=== PATIENT | female | born 1975 | race Caucasian/White ===

== ENCOUNTER 2016-09-24 00:30 | Emergency (ER) | payer BC ==
[~2016-09-24] VITALS: Ht 162.6 cm; Wt 101.1 kg
[2016-09-24 00:30] VITALS: Ht 162.6 cm; Wt 101.1 kg
[~2016-09-24 00:30] MED LIST: BUPR150T6 PO; CYCL-375 PO; HYDR-4010 PO; IBUP-1547 PO; LURA20TA PO; LURA80TA PO
--- OUTSIDE RECORDS SUMMARY | 2016-09-24 00:34 | XMS REPORT ---
Author Author Yessenia Spear [facility] eClinicalWorks Address Unknown Phone Unavailable Care Team Providers Care Model Maker Plaster Name Role Phone Yessenia Spear Unavailable Allergies No Known Allergies Problems Problem Type Condition ICD-9 Code Onset Dates Condition Status Problem Migraine headaches 346.90 Active Medications No Known Medications Vital Signs Date/Time: Jun 10, 2014 Height 64.5 inches Weight 214.8 lbs Temperature 98.3 F Blood Pressure Diastolic 88 mm Hg Blood Pressure Systolic 124 mm Hg Cardiac Monitoring Heart Rate 64 Beats per Minute BMI 36.30 Index Respiratory Rate 16 per Minute Results No Known Results Summary Purpose eClinicalWorks Submission
--- OUTSIDE RECORDS SUMMARY | 2016-09-24 00:34 | XMS REPORT | Summary of Care ---
Author Author Bree Lee, Tristan Organization Unknown Address Unknown Phone Unavailable Care Team Providers Care Placement Coordinator Name Role Phone Tristan Giron M.D. 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 * Refills: 0 * Started 27-May-2015 ActiveGabapentin 100 MG Oral Capsule TAKE 1 CAPSULE 3 TIMES DAILY. * Refills: 0 * Started 27-May-2015 ActiveHydrocodone-Acetaminophen 7.5-325 MG Oral Tablet TAKE 1 TABLET BY MOUTH EVERY 6 HOURS NEEDED .*MAX 4 PER DAY*MAY FILL ON OR AFTER 11/19/15* * Quantity: 120 Refills: 0 Tristan Giron M.D.* Started 27-May-2015 ActiveBusPIRone HCl - 10 MG Oral Tablet TAKE 1 TABLET DAILY DIRECTED. * Refills: 0 * Started 27-May-2015 ActiveMeloxicam 15 MG Oral Tablet TAKE ONE TABLET BY MOUTH EVERY DAY WITH FOOD * Quantity: 30 Refills: 2 Tristan Giron M.D.* Started 27-May-2015 ActiveCyclobenzaprine HCl - 10 MG Oral Tablet TAKE 1 TABLET 3 TIMES DAILY NEEDED. * Quantity: 90 Refills: 2 Tristan Giron M.D.* Started 27-May-2015 ActiveEvzio 0.4 MG/0.4ML Injection Solution Auto-injector INJECT 0.4MG SC/IM Q 2-3MIN NEEDED PER OVERDOSE * Quantity: 1 Refills: 0 Tristan Giron M.D.* Started 27-May-2015 Active0.4 ML Package (2 Packages) Allergies and Adverse Reactions Name Dates Details Bactrim Status: Active Latex Gloves MISC Status: Active Levaquin Status: Active Past Medical History Name Dates Details History of asthma (V12.69, Z87.09) Status: Resolved History of depression (V11.8, Z86.59) Status: Resolved History of migraine (V12.49, Z86.69) Status: Resolved History of pancreatitis (V12.79, Z87.19) Status: Resolved History of rheumatoid arthritis (V13.4, Z87.39) Status: Resolved History of seasonal allergies (V15.09, Z88.9) Status: Resolved History of Stomach problems (536.9, K31.9) Status: Resolved History of Ulcer (707.9, L98.499) Status: Resolved Procedures Procedure Dates Details History of Gallbladder Surgery History of Hysterectomy History of Tubal Ligation [facility] Cervical Epidural 15481 Ordered: Immunization Name Dates Details Immunizations not documented Family History Unknown Family Member* Name Dates Details Family history of hypercholesterolemia (V18.19, Z83.49) Comments: Family History Status: Active Family history of myocardial infarction (V17.3, Z82.49) Comments: Family History Status: Active Family history of cerebrovascular accident (CVA) (V17.1, Z82.3) Comments: Family History Status: Active Family history of skin cancer (V16.8, Z80.8) Comments: Family History Status: Active Family history of Alcoholism and drug addiction in family (V61.41, Z63.72) Comments: Family History Status: Active Mother* Name Dates Details Family history of alcoholism (V17.0, Z81.1) Status: Active Family history of hypertension (V17.49, Z82.49) Status: Active Brother* Name Dates Details Family history of depression (V17.0, Z81.8) Status: Active Family history of seizures (V19.8, Z84.89) Status: Active Social History Name Dates Details Smoking Status* Never smoker * Never smoker Vital Signs Date Test Result Details 09:44 BP Systolic 120 mm[Hg] Status: BP Diastolic 84 mm[Hg] Status: Heart Rate 70 /min Status: Respiration Rate 20 /min Status: Height 64 in Status: Weight 234 lb Status: O2 SAT 99 % Status: Body Mass Index Calculated 40.17 kg/m2 Status: Body Surface Area Calculated 2.09 m2 Status: Results Date Description Value Details 09:27 MRI CERVICAL SPINE Comments: Exam Date: 10/21/2015 08: 00Dictation Date: 10/21/2015 09:27 XMR SPINE CERVICAL (Better) Plan of Care Planned Observations* Name Dates Details Planned Goals not documented Goal Planned Encounters* Appointment; Provider: Schedule Radiology On 08:45 Instructions * Instructions not documented Encounters Appointment; Tristan Giron Encounter Diagnosis: Problem not documented On 09:45 Appointment; Tristan Giron Encounter Diagnosis: Problem not documented On 23-Aug-2015 14:15 Appointment; Tristan Giron Encounter Diagnosis: Problem not documented On 25-Jun-2015 15:30 Appointment; Tristan Giron Encounter Diagnosis: Problem not documented On 27-May-2015 13:30
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
--- OUTSIDE RECORDS SUMMARY | 2016-09-24 00:34 | XMS REPORT ---
Author Author Yessenia Spear [facility] eClinicalWorks Address Unknown Phone Unavailable Care Team Providers Care Electric Transfer Operator Name Role Phone Yessenia Spear CP Unavailable Allergies No Known Allergies Problems Problem Type Condition Code Onset Dates Condition Status Problem Migraine headaches 346.90 Active Medications No Known Medications Results No Known Results Summary Purpose eClinicalWorks Submission
--- OUTSIDE RECORDS SUMMARY | 2016-09-24 00:34 | XMS REPORT | Summary of Care ---
Author Author Tristan Giron M.D. Organization Unknown Address Unknown Phone Unavailable Care Team Providers Care Dye Line Operator Name Role Phone Tristan Giron M.D. 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 * Quantity: 90 Refills: 2 Tristan Giron M.D.* Started 27-May-2015 ActiveBusPIRone HCl [...] TIMES DAILY NEEDED. * Quantity: 90 Refills: 0 Tristan Giron M.D.* Started 27-May-2015 ActiveEvzio 0.4 MG/0.4ML Injection Solution Auto-injector INJECT 0.4MG SC/IM Q 2-3MIN NEEDED PER OVERDOSE * Quantity: 1 Refills: 0 Tristan Giron M.D.* Started 27-May-2015 Active0.4 ML Package (2 Packages) CloNIDine HCl - 0.1 MG Oral Tablet TAKE 1 TABLET BY MOUTH TWICE DAILY X'S 1 WEEK. * Quantity: 14 Refills: 0 Tristan Giron M.D.* Started 08-Jul-2015 Ended 15-Jul-2015 Active Allergies and Adverse Reactions Name Dates Details [...] History of Hysterectomy History of Tubal Ligation Procedures not documented Immunization Name Dates Details Immunizations not documented [...] smoker Vital Signs Date Test Result Details 25-Jun-2015 15:27 BP Systolic 110 mm[Hg] Status: BP Diastolic 84 mm[Hg] Status: Heart Rate 95 /min Status: Respiration Rate 20 /min Status: Height 64 in Status: Weight 228.25 lb Status: O2 SAT 98 % Status: Body Mass Index Calculated 39.18 kg/m2 Status: Body Surface Area Calculated 2.07 m2 Status: Results Date Description Value Details Results not documented Plan of Care Planned Observations* Name Dates Details Planned Goals not documented Goal Planned Encounters* Appointment; Provider: Tristan Giron On 23-Aug-2015 14:15 Instructions * Instructions not documented Encounters Appointment; Tristan Giron Encounter Diagnosis: Problem not documented On 25-Jun-2015 15:30 Appointment; Tristan Giron Encounter Diagnosis: Problem not documented On 27-May-2015 13:30
--- OUTSIDE RECORDS SUMMARY | 2016-09-24 00:34 | XMS REPORT | Summary of Care ---
Author Author Tristan Giron M.D. Organization Unknown Address Unknown Phone Unavailable Care Team Providers Care Visitor Services Assistant Name Role Phone Tristan Giron M.D. Unavailable [...] Tristan Giron M.D.* Started 08-Jul-2015 Ended 15-Jul-2015 ActiveFentaNYL 12 MCG/HR Transdermal Patch 72 Hour APPLY 1 PATCH EVERY 72 HRS WITH 25MCG PATCH=37MCG. *REMOVE OLD PATCH PRIOR. MUST LAST 30 DAYS.*MAY FILL ON OR AFTER 08/08/15* * Quantity: 10 Refills: 0 Tristan Giron M.D.* Started 08-Jul-2015 Active Allergies and Adverse Reactions Name Dates [...]
--- OUTSIDE RECORDS SUMMARY | 2016-09-24 00:34 | XMS REPORT | Referral Summary ---
Author Author [facility], [facility] Care Organization [facility] Address Unknown Phone Unavailable Care Team Providers Care Consulting Engineer Name Role Phone Jet Moore Primary Care Physician [phone] Encounter VC Date(s): 02/10/16 - 02/10/16 [facility] [address] [place] [address] Discharge Diagnosis: Bipolar disorder Discharge Diagnosis: Obesity Discharge Diagnosis: Chronic neck and back pain Discharge Disposition: 01-Home or Self Care Attending Physician: Kevin Pritchard PA-C Admitting Physician: Kevin Pritchard PA-C Vital Signs Most recent to 1 oldest [Reference Range]: Temperature Tympanic 37.1 degC [36.6-38.1 degC] (02/10/16 1:06 PM) Peripheral Pulse 106 bpm Rate [60-100 bpm] *HI* (02/10/16 1:06 PM) Blood Pressure 122/84 mmHg [90-140/60-90 mmHg] (02/10/16 1:06 PM) SpO2 98 % (02/10/16 1:06 PM) Problem List Condition Effective Dates Status Health Status Informant Marijuana Active use(Confirmed) Chronic neck Active pain(Confirmed) Hx of noncompliance Active with medical treatment, presenting hazards to health(Confirmed) SONIA (generalized Active anxiety disorder)(Confirmed) Chronic bipolar Active disorder(Confirmed) Obesity(Confirmed) Active patient Allergies, Adverse Reactions, Alerts Substance Reaction Severity Status Bactrim Active Latex Active Levaquin Active Medications cyclobenzaprine 10 mg oral tablet 10 mg 1 tabs, Oral, TID, as needed for spasm, # 60 tabs, 0 Refill(s), Pharmacy: [facility] #[id number], 1 tabs Oral TID,PRN:as needed for spasm Start Date: 02/03/16 Status: Ordered LaMICtal 25 mg oral tablet 25 mg 1 tabs, Oral, Daily, 0 Refill(s) Start Date: 02/03/16 Status: Ordered Misc Medication Takes something for sleep prescribed by PV., 0 Refill(s) Start Date: 02/03/16 Status: Ordered Results No data available for this section Immunizations No data available for this section Procedures Procedure Date Related Diagnosis Body Site Cholecystectomy Hysterectomy Tubal ligation Social History Social History Type Response Smoking Status Never smoker Assessment and Plan Extracted from: Title: Neck pain Author: Kevin Pritchard PA-C Date: 02/10/16 Assessment/Plan Bipolar disorder Patient reports stable and continued care at [place] Chronic neck and back pain We discussedfollow-up appointment with Dr. Moore in February, I alsodiscussed the Toradol injection in office. Patient was willing tohave Toradol injection;she reports having this previouslyin the ERand it was helpful.Patient was going to cease NSAID use for 12 hours- ibuprofen/Motrin or Aleve;she could use Tylenol 1000 mg every 8 hours and continue using the Flexeril with this injection. Obesity
--- OUTSIDE RECORDS SUMMARY | 2016-09-24 00:34 | XMS REPORT | Referral Summary ---
Author Author [facility], Family Medicine Organization [facility] Address Unknown Phone Unavailable Care Team Providers Care Consumer Lending Manager Name Role Phone Jet Moore Primary Care Physician [phone] Encounter VC Date(s): 02/23/16 - 02/23/16 [facility] [address] [place] [address] Discharge Diagnosis: Hx of noncompliance with medical treatment, presenting hazards to health Discharge Diagnosis: SONIA (generalized anxiety disorder) Discharge Diagnosis: Chronic neck pain Discharge Diagnosis: Chronic bipolar disorder Discharge Disposition: 01-Home or Self Care Attending Physician: Trevon Moore MD Admitting Physician: Trevon Moore MD Vital Signs Most recent to 1 oldest [Reference Range]: Blood Pressure 130/100 mmHg [90-140/60-90 mmHg] (02/23/16 1:36 PM) Problem List Condition Effective Dates Status [...] spasm, # 60 tabs, 0 Refill(s), Pharmacy: [facility] #[id number], 1 tabs Oral TID,PRN:as needed for spasm Start Date: 02/03/16 Status: Ordered cyproheptadine 4 mg oral tablet 8 mg 2 tabs, Oral, Bedtime (once a day), from PV, 0 Refill(s) Start Date: 02/23/16 Status: Ordered LaMICtal 25 mg oral tablet 25 mg 1 tabs, Oral, Daily, 0 Refill(s) Start Date: 02/03/16 Status: Ordered Reeds 7.5 mg-325 mg oral tablet 1 tabs, Oral, q6hr, as needed for pain, 56 tabs must last fourteen days, # 56 tabs, 0 Refill(s) Start Date: 02/23/16 Status: Ordered Physical Therapy Physical Therapy, See Instructions, Eval and treat as indicated for neck and back pain., # 1 Each, 0 Refill(s) Start Date: 02/23/16 Status: Ordered Results No data available for this section Immunizations No data available for this section Procedures Procedure Date Related Diagnosis Body Site Cholecystectomy Hysterectomy Tubal ligation Social History Social History Type Response Smoking Status Never smoker Assessment and Plan Extracted from: Title: Ambulatory Patient Education Author: Trevon Moore MD Date: Procedures Epidural Steroid Injection An epidural steroid injection is given to relieve pain in your neck, back, or legs that is caused by the irritation or swelling of a nerve root. This procedure involves injecting a steroid and numbing medicine (anesthetic) into the epidural space. The epidural space is the space between the outer covering of your spinal cord and the bones that form your backbone (vertebra). LET YOUR HEALTH CARE PROVIDER KNOW ABOUT: Any allergies you have. All medicines you are taking, including vitamins, herbs, eye drops, creams, and pmsc-gqi-mxhyvyn medicines such as aspirin. Previous problems you or members of your family have had with the use of anesthetics. Any blood disorders or blood clotting disorders you have. Previous surgeries you have had. Medical conditions you have. RISKS AND COMPLICATIONS Generally, this is a safe procedure. However, as with any procedure, complications can occur. Possible complications of epidural steroid injection include: Headache. Bleeding. Infection. Allergic reaction to the medicines. Damage to your nerves. The response to this procedure depends on the underlying cause of the pain and its duration. People who have long-term (chronic) pain are less likely to benefit from epidural steroids than are those people whose pain comes on strong and suddenly. BEFORE THE PROCEDURE Ask your health care provider about changing or stopping your regular medicines. You may be advised to stop taking blood-thinning medicines a few days before the procedure. You may be given medicines to reduce anxiety. Arrange for someone to take you home after the procedure. PROCEDURE You will remain awake during the procedure. You may receive medicine to make you relaxed. You will be asked to lie on your stomach. The injection site will be cleaned. The injection site will be numbed with a medicine (local anesthetic). A needle will be injected through your skin into the epidural space. Your health care provider will use an X-ray machine to ensure that the steroid is delivered closest to the affected nerve. You may have minimal discomfort at this time. Once the needle is in the right position, the local anesthetic and the steroid will be injected into the epidural space. The needle will then be removed and a bandage will be applied to the injection site. AFTER THE PROCEDURE You may be monitored for a short time before you go home. You may feel weakness or numbness in your arm or leg, which disappears within hours. You may be allowed to eat, drink, and take your regular medicine. You may have soreness at the site of the injection. This information is not intended to replace advice given to you by your health care provider. Make sure you discuss any questions you have with your health care provider. Document Released: 08/13/2008 Document Revised: 01/07/2014 Document Reviewed: ExitCare Patient Information 2016 [employer] No follow up information was provided. Extracted from: Title: Office Visit Note Author: Trevon Moore MD Date: 02/23/16 Assessment/Plan Chronic bipolar disorder This issue was reviewed, appears stable, and current therapy continued except as mentioned. Appropriate lab was reviewed from the most recent appropriate entry and lab was ordered if needed in the cpoe/nursing orders, and follow up recommended generally in 90 days and no later then six months. Seeing at and stable. Chronic neck pain Mobic 7.5mg po bid prn, flexeril 10mg po tid prn, and may have Reeds 7.5mg po qid number fifty six (56) every 14 days for now. Narcotic contract discussed. PT script for back pain. A work/school note was offered and deferred by the patient. SONIA (generalized anxiety disorder) This issue was reviewed, appears stable, and current therapy continued except as mentioned. Appropriate lab was reviewed from the most recent appropriate entry and lab was ordered if needed in the cpoe/nursing orders, and follow up recommended generally in 90 days and no later then six months. Seen at . Hx of noncompliance with medical treatment, presenting hazards to health See above. Narcotic contract.
--- OUTSIDE RECORDS SUMMARY | 2016-09-24 00:34 | XMS REPORT | Referral Summary ---
Author Author [facility], Family Medicine Organization [facility] Address Unknown Phone Unavailable Care Team Providers Care Bridge Contractor Name Role Phone Jet Moore Primary Care Physician [phone] Encounter VC Date(s): 02/03/16 - 02/03/16 [facility] [address] [place] [address] Discharge Diagnosis: Chronic neck pain Discharge Diagnosis: Obesity Discharge Diagnosis: SONIA (generalized anxiety disorder) Discharge Diagnosis: Marijuana use Discharge Diagnosis: Chronic bipolar disorder Discharge Diagnosis: Hx of noncompliance with medical treatment, presenting hazards to health Discharge Disposition: 01-Home or Self Care Attending Physician: Trevon Moore MD Admitting Physician: Trevon Moore MD Vital Signs Most recent to 1 oldest [Reference Range]: Blood Pressure 120/90 mmHg [90-140/60-90 mmHg] (02/03/16 11:13 AM) Problem List Condition Effective Dates Status Health [...] spasm, # 60 tabs, 0 Refill(s), Pharmacy: [facility] #[id number], 1 tabs Oral TID,PRN:as needed for spasm [...] Patient Education Author: Trevon Moore MD Date: Family Medicine Bipolar Disorder Bipolar disorder is a mental illness. The term bipolar disorder actually is used to describe a group of disorders that all share varying degrees of emotional highs and lows that can interfere with daily functioning, such as work , school, or relationships. Bipolar disorder also can lead to drug abuse, hospitalization, and suicide. The emotional highs of bipolar disorder are periods of elation or irritability and high energy. These highs can range from a mild form (hypomania) to a severe form (jackie). People experiencing episodes of hypomania may appear energetic, excitable, and highly productive. People experiencing jackie may behave impulsively or erratically. They often make poor decisions. They may have difficulty sleeping. The most severe episodes of jackie can involve having very distorted beliefs or perceptions about the world and seeing or hearing things that are not real (psychotic delusions and hallucinations). The emotional lows of bipolar disorder (depression) also can range from mild to severe. Severe episodes of bipolar depression can involve psychotic delusions and hallucinations. Sometimes people with bipolar disorder experience a state of mixed mood. Symptoms of hypomania or jackie and depression are both present during this mixed -mood episode. SIGNS AND SYMPTOMS There are signs and symptoms of the episodes of hypomania and jackie as well as the episodes of depression. The signs and symptoms of hypomania and jackie are similar but vary in severity. They include: Inflated self-esteem or feeling of increased self-confidence. Decreased need for sleep. Unusual talkativeness (rapid or pressured speech) or the feeling of a need to keep talking. Sensation of racing thoughts or constant talking, with quick shifts between topics that may or may not be related (flight of ideas). Decreased ability to focus or concentrate. Increased purposeful activity, such as work, studies, or social activity , or nonproductive activity, such as pacing, squirming and fidgeting, or finger and toe tapping. Impulsive behavior and use of poor judgment, resulting in high-risk activities, such as having unprotected sex or spending excessive amounts of money. Signs and symptoms of depression include the following: Feelings of sadness, hopelessness, or helplessness. Frequent or uncontrollable episodes of crying. Lack of feeling anything or caring about anything. Difficulty sleeping or sleeping too much. Inability to enjoy the things you used to enjoy. Desire to be alone all the time. Feelings of guilt or worthlessness. Lack of energy or motivation. Difficulty concentrating, remembering, or making decisions. Change in appetite or weight beyond normal fluctuations. Thoughts of or the desire to harm yourself. DIAGNOSIS Bipolar disorder is diagnosed through an assessment by your caregiver. Your caregiver will ask questions about your emotional episodes. There are two main types of bipolar disorder. People with type I bipolar disorder have manic episodes with or without depressive episodes. People with type II bipolar disorder have hypomanic episodes and major depressive episodes, which are more serious than mild depression. The type of bipolar disorder you have can make an important difference in how your illness is monitored and treated. Your caregiver may ask questions about your medical history and use of alcohol or drugs, including prescription medication. Certain medical conditions and substances also can cause emotional highs and lows that resemble bipolar disorder (secondary bipolar disorder). TREATMENT Bipolar disorder is a long-term illness. It is best controlled with continuous treatment rather than treatment only when symptoms occur. The following treatments can be prescribed for bipolar disorders: MedicationMedication can be prescribed by a doctor that is an expert in treating mental disorders (psychiatrists). Medications called mood stabilizers are usually prescribed to help control the illness. Other medications are sometimes added if symptoms of jackie, depression, or psychotic delusions and hallucinations occur despite the use of a mood stabilizer. Talk therapySome forms of talk therapy are helpful in providing support, education, and guidance. A combination of medication and talk therapy is best for managing the disorder over time. A procedure in which electricity is applied to your brain through your scalp (electroconvulsive therapy) is used in cases of severe jackie when medication and talk therapy do not work or work too slowly. This information is not intended to replace advice given to you by your health care provider. Make sure you discuss any questions you have with your health care provider. Document Released: 08/13/2001 Document Revised: 05/28/2015 Document Reviewed: ExitCare Patient Information 2016 [facility]. No follow up information was provided. Extracted from: Title: Office Visit Note Author: Trevon Moore MD Date: 02/03/16 Assessment/Plan Chronic bipolar disorder This issue was reviewed, appears stable, and current therapy continued except as mentioned. Appropriate lab was reviewed from the most recent appropriate entry and lab was ordered if needed in the cpoe/nursing orders, and follow up recommended generally in 90 days and no later then six months. Seeing Dr. Tyler at . Chronic neck pain Stable. She needs to get records. She is welcome to have PT or arrange and epidural. We needher MRI report. She may have flexeril 10mg po tid prn, may cause sedation.She may have 90 every 30 days. Shemay NOT have norco at this time. Is is NOT due regardless per [facility] until at least 02/16. I will consider a narcotic contract anddrug testing at that time provided she has turned in her MRI. She may consider lyrica or cymbalta ifdesired and is to check with psychiatry at her appt on 02/16. SONIA (generalized anxiety disorder) This issue was reviewed, appears stable, and current therapy continued except as mentioned. Appropriate lab was reviewed from the most recent appropriate entry and lab was ordered if needed in the cpoe/nursing orders, and follow up recommended generally in 90 days and no later then six months. Stable with PV. Hx of noncompliance with medical treatment, presenting hazards to health See above. No drug use and will likely be drugtested if we agree to pain management for her. Marijuana use See above. Will not be tolerated if starting pain management at [facility]. Obesity Diet and exercise as tolerated and feasible. Consider medication when interested.
--- OUTSIDE RECORDS SUMMARY | 2016-09-24 00:35 | XMS REPORT | Summary of Care ---
Author Author Tristan Giron M.D. Organization Unknown Address Unknown Phone Unavailable Care Team Providers Care Basin Tender Name Role Phone Tristan Giron M.D. Unavailable Unavailable No Assigned PCP-Pt Confirmed Unavailable Unavailable Unavailable Unavailable Functional Status Name Dates Details Functional status health issues are not documented Status: Name Dates Details Cognitive status health issues [...] morbid, BMI 40.0-49.9 (278.01, E66.01) Status: Active Pain management (V58.89, R52) Status: Active Medications Name Dates Details Latuda 80 MG Oral Tablet t tablet daily with food Quantity: 30 * Start 27-May-2015 Active Latuda 20 MG Oral Tablet 1 tablet daily * Refills: 0 * Start 27-May-2015 Active BuPROPion HCl ER (XL) 300 MG Oral Tablet Extended Release 24 Hour TAKE 1 TABLET DAILY DIRECTED. * Refills: 0 * Start 27-May-2015 Active Gabapentin 100 MG Oral Capsule TAKE 1 CAPSULE 3 TIMES DAILY. * Refills: 0 * Start 27-May-2015 Active Hydrocodone-Acetaminophen 7.5-325 MG Oral Tablet TAKE 1 TABLET BY MOUTH EVERY 6 HOURS NEEDED .*MAX 4 PER DAY*MAY FILL ON OR AFTER 12/18/15* * Quantity: 120 Refills: 0 Tristan Giron M.D. * Start 27-May-2015 Active BusPIRone HCl - 10 MG Oral Tablet TAKE 1 TABLET DAILY DIRECTED. * Refills: 0 * Start 27-May-2015 Active Meloxicam 15 MG Oral Tablet TAKE ONE TABLET BY MOUTH EVERY DAY WITH FOOD * Quantity: 30 Refills: 2 Bree LeeTristan * Start 27-May-2015 Active Cyclobenzaprine HCl - 10 MG Oral Tablet TAKE 1 TABLET 3 TIMES DAILY NEEDED. * Quantity: 90 Refills: 2 Bree Lee, Tristan * Start 27-May-2015 Active Evzio 0.4 MG/0.4ML Injection Solution Auto-injector INJECT 0.4MG SC/IM Q 2-3MIN NEEDED PER OVERDOSE * Quantity: 1 Refills: 0 Bree LeeTristan * Start 27-May-2015 Active 0.4 ML Package (2 Packages) Allergies and Adverse Reactions Name Dates Details Bactrim (Allergy) Status: Active Latex Gloves MISC (Allergy) Status: Active Levaquin (Allergy) Status: Active Past Medical History Name Dates [...] History of Hysterectomy History of Tubal Ligation Drug Screen Pain Management 8400 Ordered: Immunization Name Dates Details Immunizations not documented Family History Name Dates Details Family history of hypercholesterolemia [...] (V61.41, Z63.72) Comments: Family History Status: Active Name Dates Details Family history of alcoholism (V17.0, Z81.1) Status: Active Family history of hypertension (V17.49, Z82.49) Status: Active Name Dates Details Family history of depression (V17.0, Z81.8) Status: Active Family history of seizures (V19.8, Z84.89) Status: Active Social History Name Dates Details - Status: Name Dates Details Never smoker Never smoker Vital Signs Date Test Result Details 11:17 BP Systolic 132 mm[Hg] Status: Comments: Location: ; Position: BP Diastolic 90 mm[Hg] Status: Comments: Location: ; Position: Heart Rate 66 /min Status: Comments: Location: ; Physical Findings 18 Status: Comments: Respiration Height 64 in Status: Weight 228.375 lb Status: Physical Findings 97 Status: Comments: O2 Saturation Body Mass Index Calculated 39.2 kg/m2 Status: Body Surface Area Calculated 2.07 m2 Status: Results Date Description Value Details Results not documented Plan of Care Name Dates Details Planned Observations Planned Goals not documented Planned Encounters Appointment; Provider: Tristan Giron M.D. On 15-Feb-2016 11:15 Interventions Provided Medication Changes* Cyclobenzaprine HCl - 10 MG Oral Tablet - Renew * Hydrocodone-Acetaminophen 7.5-325 MG Oral Tablet - Renew with Changes * Meloxicam 15 MG Oral Tablet - Renew Labs/Procedures/Imaging* Drug Screen Pain Management 8400; To be Done: 17 Dec 2015 Instructions Name Dates Details Instructions not documented Encounters Appointment; Tristan Giron M.D. Encounter Diagnosis: Problem not documented On 09:45 Appointment; Tristan Giron M.D. Encounter Diagnosis: Problem not documented On 23-Aug-2015 14:15 Appointment; Tristan Giron M.D. Encounter Diagnosis: Problem not documented On 25-Jun-2015 15:30 Appointment; Tristan Giron M.D. Encounter Diagnosis: Problem not documented On 27-May-2015 13:30
--- OUTSIDE RECORDS SUMMARY | 2016-09-24 00:35 | XMS REPORT | Summary of Care ---
Author Author Tristan Giron M.D. Organization Unknown Address Unknown Phone Unavailable Care Team Providers Care On Site Services Specialist Name Role Phone Tristan Giron M.D. Unavailable [...] Active Headache, cervicogenic (784.0, R51) Status: Active Medications Name Dates Details Latuda [...] Body Surface Area Calculated 2.07 m2 Status: 27-May-2015 13:48 BP Systolic 128 mm[Hg] Status: BP Diastolic 90 mm[Hg] Status: Heart Rate 72 /min Status: Respiration Rate 20 /min Status: Height 64 in Status: Weight 228.25 lb Status: O2 SAT 96 % Status: Body Mass Index Calculated 39.18 kg/m2 Status: Body Surface Area Calculated 2.07 m2 Status: Results Date Description Value Details 30-May-2013 00:00 PAP SMEAR 9600 PAP SMEAR Negative (Better) 12-Jun-2013 00:00 MAMMOGRAM-SCREENING XM SCREENING normal (Better) Plan of Care Planned Observations* Name Dates Details Planned Goals not documented Goal Planned Encounters* Appointment; Provider: Tristan Giron On 23-Aug-2015 14:15 Instructions * Instructions not documented Encounters Appointment; Tristan Giron Encounter Diagnosis: Problem not documented On 25-Jun-2015 15:30 Appointment; Tristan Giron Encounter Diagnosis: Problem not documented On 27-May-2015 13:30
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
--- OUTSIDE RECORDS SUMMARY | 2016-09-24 00:35 | XMS REPORT | Summary of Care ---
Author Author Bree Lee, Tristan Organization Unknown Address Unknown Phone Unavailable Care Team Providers Care Stoker Erector And Servicer Name Role Phone Tristan Giron M.D. 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, M47.812) Status: Active Headache, cervicogenic (784.0, R51) Status: Active Obesity, Class II, BMI 35-39.9 (278.01, E66.01) Status: Active Medications Name Dates [...] FOOD * Quantity: 30 Refills: 2 Tristan Giron.Leticia.* Started 27-May-2015 ActiveCyclobenzaprine HCl - 10 MG [...] smoker Vital Signs Date Test Result Details 23-Aug-2015 14:35 BP Systolic 120 mm[Hg] Status: BP Diastolic 80 mm[Hg] Status: Heart Rate 96 /min Status: Respiration Rate 20 /min Status: Height 64 in Status: Weight 227 lb Status: O2 SAT 98 % Status: Body Mass Index Calculated 38.96 kg/m2 Status: Body Surface Area Calculated 2.06 m2 Status: Results Date Description Value Details Results not documented Plan of Care Planned Observations* Name Dates Details Planned Goals not documented Goal Instructions * Instructions not documented Encounters Appointment; Tristan Giron Encounter Diagnosis: Problem not documented On 23-Aug-2015 14:15 Appointment; Tristan Giron Encounter Diagnosis: Problem not documented On 25-Jun-2015 15:30 Appointment; Tristan Giron Encounter Diagnosis: Problem not documented On 27-May-2015 13:30
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
[2016-09-24] MEDS ORDERED: BENZ1TAB7 PO (00:59)
[2016-09-24] MEDS ORDERED: QUET300T2 PO (00:59)
[2016-09-24] MEDS ORDERED: HYDR25TA PO (00:59)
[2016-09-24] MEDS ORDERED: LAMO100T PO (00:59)
[2016-09-24 01:15] VITALS: BP 150/75; PULSE 98; RESP 22; TEMP 97.9; O2SAT 99
[2016-09-24] MEDS ORDERED: ONDANSETRON 4mg/2ml INJECTION IV ONE (01:15)
[2016-09-24] MEDS ORDERED: NORMAL SALINE 1,000 ML IV ONE (01:15)
[2016-09-24] MEDS ORDERED: FENTANYL 100mcg/2ml INJECTION IV ONE (01:15)
--- NOTE | 2016-09-24 01:15 | NUR ---
AMA/DEPART PT LEFT AMA. VERBALIZES UNDERSTANDING OF RISKS. AMA PAPERWORK SIGNED.
--- NOTE | 2016-09-24 01:16 | ERPDOC ---
Departure Disposition Decision Date: September 24, 2016 Disposition Decision Time: 01:15 Disposition: 07 AGAINST MEDICAL ADVICE Impression Impression Impression: Primary Impression: Abdominal pain Abdominal location: unspecified location Qualified Codes: R10.9 - Unspecified abdominal pain Severity: Moderate Condition: Against Medical Advice Seen By: Physician only Referrals: [facility] 2 Days Patient Instructions: Abdominal Pain (ED) Problems/Meds/Labs Reviewed?: Yes Medications reviewed and manag: Yes Follow up care ordered?: Yes Mental Status: Alert, Oriented HPI - Abdominal Pain General Chief Complaint: Abdominal Pain Stated Complaint: CP,HEART RACING Time Seen by Provider: 00:37 Source: patient History/Exam Limitations: no limitations HPI - Abdominal Pain Initial Comments 41-year-old female presents the emergency department with a chief complaint of abdominal pain. Patient noted onset of symptoms between 2300 and midnight. Pain is sharp. Pain is located in the epigastric region. Pain is moderate in nature. No radiation. Patient denies any other complaints or associated symptoms. No exacerbating or remitting factors. Patient states she has had a history of similar symptoms in the past. No other complaints or associated symptoms. Occurred At: home Onset: Gradual Allergies: Coded Allergies: levofloxacin (Verified Allergy, Severe, THROAT SWELLING, HIVES, 09/24/16) sulfamethoxazole (Verified Allergy, Severe, SWELLING, 09/24/16) THROAT SWELLING, TACHYCARDIA trimethoprim (Verified Allergy, Severe, SWELLING, 09/24/16) THROAT SWELLING, TACHYCARDIA latex (Verified Allergy, Unknown, RASH, 09/24/16) Past History Past Medical History Pt denies signifigant PMH Hx Echocardiogram: No Respiratory: asthma Musculoskeletal: back pain Hematologic: DVT Psychological: depression Surgical History General: gallbladder Reproductive/: hysterectomy, tubal ligation Family History Family PMH: FOUND: [place], cancer, diabetes, hypertension Vaccines Hx Influenza Vaccination: No Hx Pneumococcal Vaccination: No Social History Smoking Status: Never smoker Substance Use Type: does not use Alcohol Intake: none Sexuality: male partner Review of Systems Constitutional Constitutional: DENIES: chills, fever Eyes General: DENIES: erythema, exudate Lids/Accessories: DENIES: erythema, swelling Vision: DENIES: acuity, blurring ENMT Ears: DENIES: drainage, erythema Hearing: DENIES: hearing loss Balance: DENIES: ataxia, falling to one side Sinuses: DENIES: congestion, pain Nose: DENIES: nosebleeds, pain Mouth/Throat: DENIES: painful swallowing, sore throat Teeth: DENIES: pain Jaw: DENIES: pain Cardiovascular Cardiac: DENIES: chest pain, dyspnea on exertion Rhythm/Rate: DENIES: irregular beat, palpitations Vascular: DENIES: pedal edema, unilateral swelling Pulmonary Respiratory: DENIES: cough, dyspnea, pleuritic chest pain, sputum GI Upper Abdomen: pain, DENIES: nausea, vomiting Lower Abdomen: DENIES: diarrhea, pain General: DENIES: dysuria, frequency Musculoskeletal General: DENIES: joint pain, tenderness Integumentary Skin: DENIES: itching, rash Neurological General: DENIES: headache, numbness, weakness Psychiatric Psychiatric: DENIES: emotional instability, suicidal ideation/attempt Endocrine Endocrine: DENIES: polydipsia, polyphagia Hematologic/Lymphatic Hematologic/Lymphatic: DENIES: frequent nosebleeds, lymphadenopathy Allergic/Immunological Allergic/Immunoligical: DENIES: allergic reactions, hives Physical Exam General General Nourishment: well nourished, well developed, appears stated age, no acute distress, adult General Body Habitus: well groomed Vitals and Pain First Documented Vital Signs Date Time Temp Pulse Resp B/P Pulse Ox O2 Delivery O2 Flow Rate FiO2 09/24/16 00:30 97.9 107 22 158/84 99 Room Air Weight: Kilograms: 101.100 Height (feet): 5 Height (inches): 4.00 Triage Pain Scale: RN VS reviewed by Provider: Yes Normal Exams: Head: Normocephalic w/o trauma Eyes: Pupils are PERRLA w/ EOMI, No scleral icterus, irritation, or foreign bodies noted ENMT: No facial trauma, nasal exudates, pharyngeal erythema, or exudates are noted Neck: Full range of motion, without adenopathy, JVD, bruits or thyromegaly Chest/Resp: Clear all gamez, with good airflow, and symmetry bilaterally CV: Regular rate and rhythm, without murmur or gallop, Pulses 2+ all extremities, capillary refill, <2 seconds all ext., no pedal edema noted Abdomen: Bowel sounds positive, non-distended, no hepatosplenomegaly, masses or bruits noted Lymphatic: No lymphadenopathy, or lymphedema noted Musculoskeletal: No tenderness, or deformity noted, good range of motion, all extremities Integumentary: No rashes, hives, or bruising noted, hair and nails, without abnormality Neurologic: Patient is alert, and oriented, cranial nerves, motor/sensory/ cerebellar, exams w/o gross deficits, to observation Psychiatric: Patient exhibits, appropriate attention, emotion and affect Abdomen (brief) Comments ABD Pain - Mild epigastric tenderness to palpation. No rebound or guarding. Nondistended. Bowel sounds active in all 4 quadrants. No CVAT. Differential Diagnoses Considering: Acute FL, Bowel Obstruction, Cholecystitis, Diverticulitis, Gastroenteritis, GERD, Ileus Progress Results/Orders Orders Procedure Category Date Status Time Iv Lock (Ed Only) EDM 09/24/16 Transmitted 01:11 Fentanyl (Fentanyl) PHA 09/24/16 Complete 01:15 Ondansetron Inj PHA 09/24/16 Complete (Zofran) 01:15 Normal Saline (Normal PHA 09/24/16 In Process Saline Iv) 01:15 Medications Current ED Medications Fentanyl (Fentanyl) 50 mcg O ONCE IV ; Start 09/24/16 at 01:15; Stop 09/24/16 at 01:16; Status DC Ondansetron HCl 4 mg 4 mg O ONCE IV ; Start 09/24/16 at 01:15; Stop 09/24/16 at 01:16; Status DC Sodium Chloride (Normal Saline IV) 1,000 ml @ 999 mls/hr Q1H1M ONCE IV ; Start 09/24/16 at 01:15; Stop 09/24/16 at 02:15 Progress Progress After the EKG is performed, the patient decides that she no longer wishes to remain in the emergency Department. Patient requests to sign out AGAINST MEDICAL ADVICE. Patient is counseled that signing out AGAINST MEDICAL ADVICE could result in and/or permanent disability. Patient verbalizes agreement and understanding. Patient signed the AMA form and leaves emergency department at this time AGAINST MEDICAL ADVICE. Patient is instructed to follow up as soon as possible with health [facility]. Patient underwent a repeat attempt at counseling in order to convince her to change her mind to stay for further evaluation treatment which she declines. Patient is instructed to return to the emergency Department if her condition worsens or changes in any manner or if she changes her mind and wishes to be re-evaluated. Patient is clinically sober and capable of sound medical decision-making of the time of signing the AMA form. Patient signed the AMA form with the support of her leaves emergency department at this time. EKG EKG : Rate: 60-100 Rhythm: sinus [place]: normal QRS: normal Intervals: normal ST/T: non-specific changes Interpreted by: signing physician SHERLEY HARDWICK DO September 24, 2016 01:16
--- OUTSIDE RECORDS SUMMARY | 2016-09-24 01:47 | XMS REPORT | Continuity of Care Document ---
Author Author [facility] Organization [facility] Address Unknown Phone Unavailable Support Name Relationship Address Phone KEYSHAWN CONROY MD Caregiver [address] [place] [address] [place] [phone] CIERA THAKUR CAREER TECHNICAL EDUCATION TEACHER Caregiver [address] [place] [address] JUAN NARANJO Next Of Kin [address] [place] [address] Insurance Providers Payer Name Policy Number Subscriber Name Relationship [facility] [id number] Juna Naranjo 01 Spouse Advance Directives Directive Response [...] Trazodone Hcl PO BEDTIME 01/19/10 03/21/11 Discontinued [place] Carbonate PO BEDTIME 01/19/10 03/21/11 Discontinued [Saphris] [...] of your legs. 3.During office hours, call [phone] 4. After hours, please call [facility] at [phone], and have the steamer operator page your Surgeon IN THE EVENT [...] F (96.8 - 99.1) Temperature (Calculated Celsius) 36.01680 degrees C (36.0 - 37.3) Pulse Rate [...] 11, 2014 12:55pm 48 U/L N 23-300 [place] Level March 03, 2010 2:36pm 1.2 MMOL/L N 0.6-1.2 FAX TO [phone]--- 03/03/10 1502 --- LITH previously reported as: MMOL/L FAX TO [phone] Lymphocytes # (Auto) January 11, 2014 12:55pm [...] Has specimen been collected/obtained? Y Urine Specific [place] January 11, 2014 1:00pm <=1.005 L - [...] 23, 2011 9:34pm LAB TEST FORM REQUEST [id number] - EKG June 29, 2008 12:44pm Complete [...] collected/obtained? Y Name: ERIN NARANJO Unit #: [id number] : 1975 Sex: F Loc / Svc: ED DOS: 01/11/14 Signed Report #: [id number] DIAGNOSTIC IMAGING REPORT TYPE OF EXAM: ABDOMEN [...] OR LESS completed 10/28/13 TRACI RUIZ MD [id number] ADDITION TO CODE FOR PRIMARY PROCEDURE) completed 10/28/13 Encounters Encounter Location Date/Time Departed Emergency Room [facility] 01/11/14 12:12pm Registered Clinic [facility] 11/18/13 9:43am Discharged Inpatient [facility] 11/04/13 3:22pm Recent Diagnosis
--- OUTSIDE RECORDS SUMMARY | 2016-09-24 01:48 | XMS REPORT | Continuity of Care Document ---
Author Author [facility] Organization [facility] Address Unknown Phone Unavailable Support Name Relationship Address Phone MARIA GUADALUPE DAY DO Caregiver [facility] [address] [place] [phone] CIERA THAKUR SUPERVISING CHEF Caregiver [address] [place] [address] JUAN NARANJO Next Of Kin [address] [place] [address] Insurance Providers Payer Name Policy Number Subscriber Name Relationship [facility] [id number] Juan Naranjo 01 Spouse Advance Directives Directive [...] Trazodone Hcl PO BEDTIME 01/19/10 03/21/11 Discontinued [place] Carbonate PO BEDTIME 01/19/10 03/21/11 Discontinued [Saphris] [...] F (96.8 - 99.1) Temperature (Calculated Celsius) 36.47816 degrees C (36.0 - 37.3) Pulse Rate [...] 11, 2014 12:55pm 48 U/L N 23-300 [place] Level March 03, 2010 2:36pm 1.2 MMOL/L N 0.6-1.2 FAX TO [phone]--- 03/03/10 1502 --- LITH previously reported as: MMOL/L FAX TO [phone] Lymphocytes # (Auto) January 11, 2014 12:55pm [...] Has specimen been collected/obtained? Y Urine Specific [place] January 11, 2014 1:00pm <=1.005 L - [...] 23, 2011 9:34pm LAB TEST FORM REQUEST [id number] - EKG June 29, 2008 12:44pm Complete [...] Y Name: ERIN NARANJO Leticia Unit #: [id number] : 1975 Sex: F Loc / Sv: ED DOS: 05/24/14 Signed Report #: [id number] DIAGNOSTIC IMAGING REPORT TYPE OF EXAM: HIP [...] Encounters Encounter Location Date/Time Departed Emergency Room [facility] 05/24/14 1:29pm Recent Diagnosis
== END 2016-09-24 01:15 | disposition left against medical advice (07) ==
LOC: ED 00:30
DX: R10.13 Epigastric pain (principal)